=== PATIENT | male | born 1985 | race Two or more races ===

== ENCOUNTER 2019-07-17 02:56 | Emergency (ER) | payer SELFPAY ==
--- NOTE | 2019-07-17 03:33 | PDOC ---
Medical Decision Making - Medical Decision Making 07/17/19 03:33 Patient seen by the advanced practice provider under my direct supervision. Ancillary testing reviewed as necessary. I agree with plan as outlined by the advanced practice provider. Discharge - Discharge Information Problems reviewed: Yes Clinical Impression/Diagnosis: Chronic shoulder pain Qualifiers: Laterality: right Qualified Code(s): M25.511 - Pain in right shoulder Condition: Stable Disposition: HOME - Follow up/Referral Referrals: Bhavin Montana MD [Staff Physician] - - Patient Discharge Instructions Patient Printed Discharge Instructions: DI for Shoulder Pain Additional Instructions: Your Discharge Instructions: You must call primary care physician within 24 hours to arrange follow-up. Return to the Emergency Department with any new, persistent or worsening symptoms, for fever, chills, SOB, dizziness or any other concerning changes that may occur. Continue Tylenol and Motrin for your pain. - Post Discharge Activity
[2019-07-17] MEDS ORDERED: LIDOCAINE 5% TOPICAL PATCH TP ONE (03:53)
[2019-07-17 03:57] VITALS: BP 130/70; BMI 23.7
[2019-07-17 04:19] VITALS: PULSE 80; TEMP 98.7
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
[2019-07-17] MEDS ORDERED: LIDOCAINE 5% TOPICAL PATCH ONE (04:26)
[2019-07-17] MEDS ORDERED: LIDOCAINE PATCH REMOVAL MC SCH (22:00)
== END 2019-07-17 05:06 | disposition home or self-care (01) ==
LOC: JER 02:56
DX: M25.511 Pain in right shoulder (principal); W19.XXXD Unspecified fall, subsequent encounter; Z87.828 Personal history of other (healed) physical injury and trauma
CPT/HCPCS: 71046-TC-FY; 73030-TC-RT-FY; 99281-25